=== PATIENT | female | born 1940 | race Caucasian/White ===

== ENCOUNTER 2017-04-28 07:27 | Emergency (ER) | payer MEDICARE, BC ==
[2017-04-28] MEDS ORDERED: NITROGLYCERIN 0.4 MG TAB SL ONE (07:34)
[2017-04-28] MEDS ORDERED: ASPIRIN 81 MG CHEWABLE CTB ONE (07:34)
[2017-04-28] MEDS: NITROGLYCERIN 0.4 MG TAB SL PRN ×3 (07:36→07:55)
[2017-04-28] MEDS ORDERED: ASPIRIN 81 MG CHEWABLE CTB PO STA (07:49)
[2017-04-28] MEDS ORDERED: SODIUM CHLORIDE 0.9% FLUSH 10 ML SOL IV PRN (07:49)
[2017-04-28] MEDS ORDERED: HEPARIN SODIUM 5000 U/ML SOL ONE (07:52)
[2017-04-28 07:54] LABS: BASOPHILS % (AUTO) 1 % (0-3); EOSINOPHILS % (AUTO) 4 % (0-9); HEMATOCRIT 45 % (35-47); MEAN CORPUSCULAR HGB CONC 33.1 gm/dl (32.0-36.0); MEAN CORPUSCULAR VOLUME 92 fL (81-99); MONOCYTES % (AUTO) 9.3 % (0-12); NEUTROPHILS % (AUTO) 52.7 % (37-80)
[2017-04-28] MEDS ORDERED: HEPARIN SODIUM 5000 U/ML SOL IV ONE (07:55)
[2017-04-28] MEDS ORDERED: HEPARIN PREMIX 25,000 U/250 ML SOL IV PRN (07:59)
[2017-04-28 08:07] LABS: CALCIUM 8.3 mg/dl (8.5-10.1); POTASSIUM 3.8 mMol/L (3.5-5.1)
[2017-04-28] MEDS ORDERED: TICAGRELOR 90 MG TAB PO ONE ×2 (08:14→08:20)
[2017-04-28] MEDS ORDERED: DEXTROSE IV PRN (08:30)
[2017-04-28] MEDS ORDERED: NITROGLYCERIN IV PRN (08:30)
[2017-04-28] MEDS ORDERED: DILTIAZEM 5 MG/ML SOL IV ONE ×2 (08:31→08:45)
[2017-04-28] MEDS ORDERED: DILTIAZEM 5 MG/ML 125 MG in SODIUM CHLORIDE 0.9% 100 ML 100 ML IV SCH (09:00)
[2017-04-28 09:20] VITALS: BP 167/105; PULSE 82; RESP 21; TEMP 98.2; O2SAT 97
== END 2017-04-28 09:00 | disposition short-term general hospital (02) | DRG 301 ==
LOC: ED 07:27
DX: I71.01 Dissection of thoracic aorta (principal)
CPT/HCPCS: 36415; 71270; 74170; 80048; 82550; 84484; 85025; 85610; 85730; 93005; 96365; 96374; 96375; 99070; 99291; J1644; Q9967

== ENCOUNTER 2017-05-04 08:39 | Emergency (ER) | payer MEDICARE, BC ==
[2017-05-04] MEDS: SODIUM CHLORIDE 0.9% FLUSH 10 ML SOL IV PRN ×2 (08:43→08:50)
[2017-05-04] MEDS ORDERED: DIPHENHYDRAMINE 50 MG/ML SOL ONE (08:45)
[2017-05-04] MEDS ORDERED: SOLUMEDROL 125 MG/2 ML 125 MG/2 ML PDS ONE (08:45)
[2017-05-04] MEDS ORDERED: DIPHENHYDRAMINE 50 MG/ML SOL IV ONE (08:49)
[2017-05-04] MEDS ORDERED: SOLUMEDROL 125 MG/2 ML 125 MG/2 ML PDS IV ONE (08:52)
[2017-05-04 10:52] VITALS: TEMP 97.7
[2017-05-04 11:13] VITALS: RESP 18
[2017-05-04 11:14] VITALS: BP 160/74; PULSE 62; O2SAT 95
== END 2017-05-04 10:39 | disposition home or self-care (01) | DRG 916 ==
LOC: ED 08:39
DX: T78.40XA Allergy, unspecified, initial encounter (principal); R06.00 Dyspnea, unspecified; R13.10 Dysphagia, unspecified; T50.905A Adverse effect of unspecified drugs, medicaments and biological substances, initial encounter
CPT/HCPCS: 99285; J1200; J2930

== ENCOUNTER 2017-05-19 15:11 | Emergency (ER) | payer MEDICARE, BC ==
[2017-05-19] MEDS: SODIUM CHLORIDE 0.9% FLUSH 10 ML SOL IV PRN ×2 (15:15→19:32)
[2017-05-19] MEDS ORDERED: NITROGLYCERIN 0.4 MG TAB SL PRN (15:28)
[2017-05-19] MEDS ORDERED: ASPIRIN 81 MG CHEWABLE CTB PO STA (15:28)
[2017-05-19] MEDS ORDERED: NITROGLYCERIN 0.4 MG TAB SL ONE (15:29)
[2017-05-19] MEDS ORDERED: ASPIRIN 81 MG CHEWABLE CTB ONE (15:29)
[2017-05-19 15:33] LABS: HEMATOCRIT 42 % (35-47); MEAN CORPUSCULAR HGB CONC 32.7 gm/dl (32.0-36.0); MEAN CORPUSCULAR VOLUME 90 fL (81-99)
[2017-05-19] MEDS ORDERED: ALBUTEROL/IPRATROPIUM 1 VIAL SOL ONE (15:43)
[2017-05-19] MEDS ORDERED: FUROSEMIDE 40 MG SOL ONE (15:43)
[2017-05-19 15:50] LABS: BASOPHILS % (MANUAL) 1 % (0-3); EOSINOPHILS % (MANUAL) 6 % (0-9); LYMPHOCYTES % (MANUAL) 22 % (10-50); NORMAL RBCS PRESENT
[2017-05-19] MEDS ORDERED: FUROSEMIDE 40 MG SOL IV ONE (15:54)
[2017-05-19] MEDS ORDERED: ALBUTEROL/IPRATROPIUM 1 VIAL SOL INH ONE (15:54)
[2017-05-19 16:09] VITALS: TEMP 97.9
[2017-05-19 16:23] LABS: POTASSIUM 4.1 mMol/L (3.5-5.1)
[2017-05-19 16:24] LABS: ALBUMIN 3.2 gm/dl (3.4-5.0)
[2017-05-19 16:53] LABS: APPEARANCE,URINE Clear; BILIRUBIN,URINE NEGATIVE (NEGATIVE); COLOR,URINE Yellow; GLUCOSE, URINE (UA) NEGATIVE (NEGATIVE); KETONES,URINE NEGATIVE (NEGATIVE); LEUKOCYTE ESTERASE ,URINE TRACE (NEGATIVE); NITRATE,URINE NEGATIVE (NEGATIVE); OCCULT BLOOD,URINE 1+ (NEG-TRACE); UROBILINOGEN,URINE 0.2 (0.2-1.0 EU)
[2017-05-19 16:55] LABS: RBC,URINE 0-2 (0-3AV/HPF); WBC,URINE 0-2 (0-5AV/HPF)
[2017-05-19] MEDS ORDERED: SOLUMEDROL 125 MG/2 ML 125 MG/2 ML PDS IV ONE ×2 (19:23→19:26)
[2017-05-19] MEDS ORDERED: SOLUMEDROL 125 MG/2 ML 125 MG/2 ML PDS ONE (19:26)
[2017-05-19 20:07] VITALS: BP 144/78; PULSE 64; RESP 18; O2SAT 94
== END 2017-05-19 19:55 | disposition home or self-care (01) | DRG 293 ==
LOC: ED 15:11
DX: I50.9 Heart failure, unspecified (principal); K76.1 Chronic passive congestion of liver; I35.0 Nonrheumatic aortic (valve) stenosis; R74.0 Nonspecific elevation of levels of transaminase and lactic acid dehydrogenase [LDH]; R06.01 Orthopnea; R79.82 Elevated C-reactive protein (CRP)
CPT/HCPCS: 71010; 71275; 80053; 81001; 82550; 83880; 84484; 85007; 85027; 85378; 93005; 99285; J1940; J2930; J7620; Q9967

== ENCOUNTER 2017-05-24 14:30 | Emergency (ER) | payer MEDICARE, BC ==
[2017-05-24] MEDS ORDERED: SODIUM CHLORIDE 0.9% FLUSH 10 ML SOL IV PRN (14:48)
[2017-05-24 15:07] VITALS: TEMP 98.5
[2017-05-24 15:07] LABS: BASOPHILS % (AUTO) 1 % (0-3); EOSINOPHILS % (AUTO) 8 % (0-9); HEMATOCRIT 39 % (35-47); MEAN CORPUSCULAR HGB CONC 34.2 gm/dl (32.0-36.0); MEAN CORPUSCULAR VOLUME 89 fL (81-99); MONOCYTES % (AUTO) 8.9 % (0-12)
[2017-05-24 15:32] LABS: ALBUMIN 3.2 gm/dl (3.4-5.0); ALT 19 IU/L (14-63); CALCIUM 8.6 mg/dl (8.5-10.1); GLOM FILT RATE 64 mL/min (>60); POTASSIUM 3.7 mMol/L (3.5-5.1); SODIUM 139 mMol/L (136-145)
[2017-05-24] MEDS ORDERED: ALBUTEROL/IPRATROPIUM 1 VIAL SOL INH ONE (15:37)
[2017-05-24] MEDS ORDERED: ALBUTEROL/IPRATROPIUM 1 VIAL SOL ONE (15:37)
[2017-05-24 16:18] VITALS: O2SAT 96
[2017-05-24 16:44] VITALS: PULSE 67
[2017-05-24 17:14] VITALS: BP 152/73; RESP 18
== END 2017-05-24 17:48 | disposition short-term general hospital (02) | DRG 204 ==
LOC: ED 14:30
DX: R06.02 Shortness of breath (principal); I71.01 Dissection of thoracic aorta; I44.7 Left bundle-branch block, unspecified; R07.9 Chest pain, unspecified
CPT/HCPCS: 71010; 80053; 82550; 83880; 84484; 85025; 93005; 99285; J7620

== ENCOUNTER 2017-06-01 20:34 | Observation (INO) | payer MEDICARE, BC ==
[2017-06-01] MEDS ORDERED: FUROSEMIDE 100 MG SOL IV ONE (20:44)
[2017-06-01] MEDS ORDERED: HYDRALAZINE HYDROCHLORIDE 20 MG/ML SOL IV ONE (20:44)
[2017-06-01 21:12] LABS: BASOPHILS % (AUTO) 1 % (0-3); EOSINOPHILS % (AUTO) 6 % (0-9); HEMATOCRIT 38 % (35-47); MEAN CORPUSCULAR HGB CONC 34.6 gm/dl (32.0-36.0); MEAN CORPUSCULAR VOLUME 88 fL (81-99); NEUTROPHILS % (AUTO) 66.2 % (37-80)
[2017-06-01] MEDS ORDERED: FUROSEMIDE 40 MG SOL ONE (21:14)
[2017-06-01] MEDS ORDERED: FUROSEMIDE 20mg SOL ONE (21:14)
[2017-06-01 21:22] LABS: ALBUMIN 3.1 gm/dl (3.4-5.0); ALT 21 IU/L (14-63); CALCIUM 8.6 mg/dl (8.5-10.1); GLOM FILT RATE 56 mL/min (>60); POTASSIUM 3.8 mMol/L (3.5-5.1); SODIUM 138 mMol/L (136-145)
[2017-06-01] MEDS ORDERED: ASPIRIN 81 MG CHEWABLE CTB PO ONE (21:28)
[2017-06-01] MEDS ORDERED: ASPIRIN 81 MG CHEWABLE CTB ONE (21:31)
[2017-06-01] MEDS ORDERED: NITROGLYCERIN 0.4 MG TAB SL ONE (21:31)
[2017-06-01] MEDS ORDERED: HYDRALAZINE HYDROCHLORIDE 20 MG/ML SOL ONE (21:37)
[2017-06-02] MEDS: NITROGLYCERIN 0.4 MG TAB SL PRN ×3 (04:19→17:56)
[2017-06-02] MEDS ORDERED: OMEPRAZOLE 20 MG CAPSULE PO SCH (07:00)
[2017-06-02 07:30] LABS: CALCIUM 8.9 mg/dl (8.5-10.1); GLOM FILT RATE 59 mL/min (>60); POTASSIUM 3.4 mMol/L (3.5-5.1); SODIUM 139 mMol/L (136-145)
[2017-06-02] MEDS: POTASSIUM CHLORIDE 10 MEQ TER PO SCH (08:42)
[2017-06-02] MEDS: ENOXAPARIN 40 MG SOL SC SCH (08:43)
[2017-06-02] MEDS: ATORVASTATIN 10 MG TAB PO SCH (08:43)
[2017-06-02] MEDS: CARVEDILOL 12.5 MG TAB PO SCH ×2 (08:43→20:58)
[2017-06-02] MEDS: PANTOPRAZOLE SODIUM 40 MG ECT PO SCH (08:43)
[2017-06-02] MEDS ORDERED: ASPIRIN 81 MG CHEWABLE CTB PO SCH (09:00)
[2017-06-02] MEDS ORDERED: FUROSEMIDE 40 MG SOL IV SCH ×2 (09:00→14:30)
[2017-06-02] MEDS: ACETAMINOPHEN 500 MG 500 MG TAB PO PRN (12:00)
[2017-06-03] MEDS: SODIUM CHLORIDE 0.9% FLUSH 10 ML SOL IV SCH ×2 (00:46→09:06)
[2017-06-03] MEDS ORDERED: ALUMINUM/MAGNESIUM 30 ML SUS PO PRN (04:25)
[2017-06-03] MEDS: NITROGLYCERIN 0.4 MG TAB SL PRN (04:45)
[2017-06-03 07:23] LABS: CALCIUM 8.9 mg/dl (8.5-10.1); POTASSIUM 3.5 mMol/L (3.5-5.1)
[2017-06-03 08:20] VITALS: BP 154/86; PULSE 80; RESP 18; TEMP 97.5; O2SAT 95
[2017-06-03] MEDS ORDERED: FUROSEMIDE 40 MG TAB PO SCH (09:00)
[2017-06-03] MEDS: CARVEDILOL 12.5 MG TAB PO SCH (09:06)
[2017-06-03] MEDS: PANTOPRAZOLE SODIUM 40 MG ECT PO SCH (09:06)
[2017-06-03] MEDS: POTASSIUM CHLORIDE 10 MEQ TER PO SCH (09:06)
[2017-06-03] MEDS: ATORVASTATIN 10 MG TAB PO SCH (09:06)
[2017-06-03] MEDS: ENOXAPARIN 40 MG SOL SC SCH (09:09)
[2017-06-03] MEDS: ACETAMINOPHEN 500 MG 500 MG TAB PO PRN (10:47)
== END 2017-06-03 10:55 | disposition short-term general hospital (02) | DRG 293 ==
LOC: ED 20:34 → ACUTE CARE 22:25
PROVIDERS: ADMIT Emergency Medicine; ATTEND Emergency Medicine
DX: I50.9 Heart failure, unspecified (principal); I06.0 Rheumatic aortic stenosis
CPT/HCPCS: 36415; 71010; 80048; 80053; 83880; 84484; 85025; 85378; 93005; 93012; 94762; 99285; J0360; J1650; J1940